=== PATIENT | male | born 1990 | race Caucasian/White ===

== ENCOUNTER 2017-02-26 09:07 | Emergency (ER) | payer MEDICAID ==
[~2017-02-26] VITALS: Ht 190.5 cm; Wt 105.9 kg
[2017-02-26 10:52] LABS: PLATELET COUNT 346 x10^3mcL (130-400); RED CELL DISTRIBUTION WIDTH 13.2 % (11.5-14.5)
[2017-02-26 11:04] LABS: BASOPHIL % 0 % (0-2)
[2017-02-26 11:18] LABS: CARBON DIOXIDE 28.6 mmol/L (21-32); CHLORIDE SERUM 98 mmol/L (98-107); CREATININE SERUM 1.1 mg/dL (0.7-1.3); GFR1 > 60 mL/min; GLUCOSE SERUM 183 mg/dL (74-106); POTASSIUM SERUM 4.1 mmol/L (3.5-5.1); SODIUM SERUM 138 mmol/L (136-145)
[2017-02-26 11:22] LABS: ALBUMIN 4.7 g/dL (3.4-5.0); ALKALINE PHOSPHATASE 65 U/L (46-116); ALT/SGPT 80 U/L (16-63); AST/SGOT 22 U/L (15-37); BILIRUBIN TOTAL 0.65 mg/dL (0.20-1.00); LIPASE 87 IU/L (73-393); MAGNESIUM 2.5 mg/dL (1.8-2.4)
[2017-02-26 11:23] LABS: TOTAL PROTEIN, SERUM 8.7 g/dL (6.4-8.2)
[2017-02-26 13:00] VITALS: BP 134/77
== END 2017-02-26 13:00 | disposition home or self-care (01) ==
LOC: ED 09:07
PROVIDERS: Emergency Medicine
DX: R11.10 Vomiting, unspecified (principal); R53.1 Weakness; R42 Dizziness and giddiness; F12.929 Cannabis use, unspecified with intoxication, unspecified
CPT/HCPCS: J2270; J2405; J3490; J7030

== ENCOUNTER 2017-02-27 11:52 | Inpatient (IN) | payer MEDICAID ==
[~2017-02-27] VITALS: Ht 190.5 cm; Wt 107.3 kg
[2017-02-27 12:38] LABS: BASOPHIL % 0.4 % (0-2); PLATELET COUNT 309 x10^3mcL (130-400); RED CELL DISTRIBUTION WIDTH 12.9 % (11.5-14.5)
[2017-02-27 12:52] LABS: CALCIUM 9.4 mg/dL (8.5-10.1); CARBON DIOXIDE 24.4 mmol/L (21-32); CHLORIDE SERUM 101 mmol/L (98-107); CREATININE SERUM 1.2 mg/dL (0.7-1.3); GFR1 > 60 mL/min; GLUCOSE SERUM 161 mg/dL (74-106); POTASSIUM SERUM 3.6 mmol/L (3.5-5.1); SODIUM SERUM 139 mmol/L (136-145)
[2017-02-27 12:56] LABS: ALBUMIN 4.4 g/dL (3.4-5.0); ALKALINE PHOSPHATASE 63 U/L (46-116); ALT/SGPT 94 U/L (16-63); AST/SGOT 44 U/L (15-37); BILIRUBIN TOTAL 0.8 mg/dL (0.20-1.00); LIPASE 84 IU/L (73-393)
[2017-02-27 12:57] LABS: TOTAL PROTEIN, SERUM 8.3 g/dL (6.4-8.2)
[2017-02-27 14:27] LABS: microscopic required? YES; urine erythrocyte TRACE (NEGATIVE)
[2017-02-27 15:10] LABS: CHOLESTEROL/HDL RATIO 3.2
[2017-02-27 15:16] VITALS: BP 151/90
[2017-02-27 15:17] VITALS: BP 151/90
[2017-02-27 15:20] LABS: FREE T4 1.37 ng/dL (0.76-1.46); FREE THYROXINE INDEX 3.2 ug/dL (1.4-4.5); T4(THYROXINE) 9.6 ug/dL (4.7-13.3)
[2017-02-27 15:22] VITALS: Ht 190.5 cm; Wt 107.3 kg
[2017-02-27 15:32] LABS: T3 TOTAL 1.34 ng/mL
[2017-02-27 18:46] VITALS: BP 132/88
[2017-02-27 22:26] VITALS: BP 124/85
[2017-02-27 23:17] LABS: AMPHETAMINE QUAL UR NONE DETECTED (NEG <=1000)
[2017-02-28 06:06] VITALS: BP 125/94
[2017-02-28 06:33] LABS: BASOPHIL % 0.6 % (0-2); PLATELET COUNT 261 x10^3mcL (130-400); RED CELL DISTRIBUTION WIDTH 12.9 % (11.5-14.5)
[2017-02-28 07:10] LABS: CALCIUM 8.3 mg/dL (8.5-10.1); CARBON DIOXIDE 27.7 mmol/L (21-32); CHLORIDE SERUM 102 mmol/L (98-107); CREATININE SERUM 0.9 mg/dL (0.7-1.3); GFR1 > 60 mL/min; GLUCOSE SERUM 120 mg/dL (74-106); MAGNESIUM 2.2 mg/dL (1.8-2.4); PHOSPHOROUS 3.3 mg/dL (2.5-4.9); POTASSIUM SERUM 3.3 mmol/L (3.5-5.1); SODIUM SERUM 138 mmol/L (136-145)
[2017-02-28 10:29] VITALS: BP 128/79
[2017-02-28 13:12] VITALS: BP 132/78
[2017-02-28] MEDS ORDERED: COL100 PO (14:08)
[2017-02-28] MEDS ORDERED: GOOD SENSE OMEP20 MG PO (14:09)
[2017-02-28] MEDS ORDERED: ZOF4 PO (14:10)
[2017-02-28] MEDS ORDERED: NORCO1 TA2 PO (14:14)
[2017-02-28 14:32] VITALS: BP 132/78
== END 2017-02-28 14:50 | disposition home or self-care (01) | DRG 776 ==
LOC: ED 11:52 → DU 13:51
PROVIDERS: Emergency Medicine; ADMIT Family Medicine
DX: F12.10 Cannabis abuse, uncomplicated (principal); N17.0 Acute kidney failure with tubular necrosis; D68.69 Other thrombophilia; E11.65 Type 2 diabetes mellitus with hyperglycemia; K76.0 Fatty (change of) liver, not elsewhere classified; F17.210 Nicotine dependence, cigarettes, uncomplicated; E78.00 Pure hypercholesterolemia, unspecified; E78.5 Hyperlipidemia, unspecified; K52.9 Noninfective gastroenteritis and colitis, unspecified; E87.6 Hypokalemia; R82.4 Acetonuria; Z89.022 Acquired absence of left finger(s); Z68.29 Body mass index [BMI] 29.0-29.9, adult
CPT/HCPCS: 80307; 83880; 84439; C9113; G0480; J1170; J2270; J2405; J2765; J7030; Q0092

== ENCOUNTER 2017-03-03 12:20 | Emergency (ER) | payer MEDICAID ==
[~2017-03-03] VITALS: Ht 190.5 cm; Wt 103.5 kg
[~2017-03-03 12:20] MED LIST: COL100 PO; GOOD SENSE OMEP20 MG PO; NORCO1 TA2 PO; ZOF4 PO
[2017-03-03 13:34] LABS: PLATELET COUNT 367 x10^3mcL (130-400); RED CELL DISTRIBUTION WIDTH 12.6 % (11.5-14.5)
[2017-03-03 13:47] LABS: BASOPHIL % 0 % (0-2)
[2017-03-03 13:48] LABS: ALBUMIN 4.5 g/dL (3.4-5.0); ALKALINE PHOSPHATASE 60 U/L (46-116); ALT/SGPT 184 U/L (16-63); AMYLASE 34 U/L (25-115); AST/SGOT 55 U/L (15-37); BILIRUBIN TOTAL 0.8 mg/dL (0.20-1.00); CALCIUM 9.8 mg/dL (8.5-10.1); CARBON DIOXIDE 26.3 mmol/L (21-32); CHLORIDE SERUM 101 mmol/L (98-107); CREATININE SERUM 1.1 mg/dL (0.7-1.3); GFR1 > 60 mL/min; GLUCOSE SERUM 160 mg/dL (74-106); LIPASE 76 IU/L (73-393); POTASSIUM SERUM 3.5 mmol/L (3.5-5.1); SODIUM SERUM 138 mmol/L (136-145)
[2017-03-03 13:55] LABS: TOTAL PROTEIN, SERUM 8.7 g/dL (6.4-8.2)
[2017-03-03 15:24] VITALS: BP 144/92
== END 2017-03-03 15:24 | disposition home or self-care (01) ==
LOC: ED 12:20
PROVIDERS: Emergency Medicine
DX: R11.2 Nausea with vomiting, unspecified (principal); F12.929 Cannabis use, unspecified with intoxication, unspecified; R10.13 Epigastric pain
CPT/HCPCS: 83880; J1630; Q0092

== ENCOUNTER 2017-03-07 13:08 | Emergency (ER) | payer MEDICAID ==
[2017-03-07 15:25] LABS: BASOPHIL % 0.5 % (0-2); PLATELET COUNT 353 x10^3mcL (130-400); RED CELL DISTRIBUTION WIDTH 12.7 % (11.5-14.5)
[2017-03-07 15:40] LABS: UA SPECIFIC GRAVITY >=1.030 (1.005-1.035); microscopic required? YES; urine erythrocyte 1+ (NEGATIVE)
[2017-03-07 15:42] LABS: ALBUMIN 4.5 g/dL (3.4-5.0); ALKALINE PHOSPHATASE 51 U/L (46-116); ALT/SGPT 166 U/L (16-63); AMYLASE 45 U/L (25-115); AST/SGOT 43 U/L (15-37); BILIRUBIN TOTAL 0.82 mg/dL (0.20-1.00); CALCIUM 9.3 mg/dL (8.5-10.1); CHLORIDE SERUM 96 mmol/L (98-107); CREATININE SERUM 0.9 mg/dL (0.7-1.3); GFR1 > 60 mL/min; GLUCOSE SERUM 109 mg/dL (74-106); LIPASE 76 IU/L (73-393); SODIUM SERUM 135 mmol/L (136-145); TOTAL PROTEIN, SERUM 8.3 g/dL (6.4-8.2)
[2017-03-07 15:48] LABS: AMPHETAMINE QUAL UR NONE DETECTED (NEG <=1000)
[2017-03-07 19:33] VITALS: BP 144/98
== END 2017-03-07 19:34 | disposition home or self-care (01) ==
LOC: ED 13:08
PROVIDERS: Emergency Medicine
DX: R11.10 Vomiting, unspecified (principal); R10.9 Unspecified abdominal pain; E87.6 Hypokalemia; F17.200 Nicotine dependence, unspecified, uncomplicated
CPT/HCPCS: 80307; 99406; J0500; J1885; J2060; J2405; J3480; J3490; J7030

== ENCOUNTER 2018-09-02 23:43 | Inpatient (IN) | payer MEDICAID ==
[~2018-09-02] VITALS: Ht 190.5 cm; Wt 100.2 kg
[2018-09-02 23:59] VITALS: Ht 190.5 cm; Wt 100.2 kg
[2018-09-03] VITALS (7 sets, daily range): BP systolic 109–143; BP diastolic 48–76
[2018-09-03 00:44] LABS: BASOPHIL % 0.2 % (0-2); PLATELET COUNT 300 x10^3mcL (130-400); RED CELL DISTRIBUTION WIDTH 13.5 % (11.5-14.5)
[2018-09-03 00:48] LABS: CALCIUM 9.2 mg/dL (8.5-10.1); CARBON DIOXIDE 23.9 mmol/L (21-32); CHLORIDE SERUM 100 mmol/L (98-107); CREATININE SERUM 1.1 mg/dL (0.7-1.3); GFR1 > 60 mL/min; GLUCOSE SERUM 153 mg/dL (74-106); POTASSIUM SERUM 3.5 mmol/L (3.5-5.1); SODIUM SERUM 138 mmol/L (136-145)
[2018-09-03 00:52] LABS: ALBUMIN 4.2 g/dL (3.4-5.0); ALKALINE PHOSPHATASE 49 U/L (46-116); ALT/SGPT 70 U/L (16-63); AST/SGOT 26 U/L (15-37); BILIRUBIN TOTAL 0.7 mg/dL (0.20-1.00)
[2018-09-03 00:53] LABS: TOTAL PROTEIN, SERUM 8.4 g/dL (6.4-8.2)
[2018-09-03 01:36] LABS: CHOLESTEROL/HDL RATIO 2.9; MAGNESIUM 2.1 mg/dL (1.8-2.4)
[2018-09-03 01:43] LABS: T3 TOTAL 1.23 ng/mL
[2018-09-03 01:48] LABS: FREE T4 1.29 ng/dL (0.76-1.46); FREE THYROXINE INDEX 3.7 ug/dL (1.4-4.5); T4(THYROXINE) 10.2 ug/dL (4.7-13.3)
[2018-09-03 04:30] LABS: microscopic required? NO
[2018-09-03 05:06] LABS: urine erythrocyte NEGATIVE (NEGATIVE)
[2018-09-03 05:15] LABS: AMPHETAMINE QUAL UR NONE DETECTED (See below)
[2018-09-03 06:24] LABS: BASOPHIL % 0.2 % (0-2); PLATELET COUNT 320 x10^3mcL (130-400); RED CELL DISTRIBUTION WIDTH 12.4 % (11.5-14.5)
[2018-09-03 06:37] LABS: CALCIUM 8.2 mg/dL (8.5-10.1); CARBON DIOXIDE 27.6 mmol/L (21-32); CHLORIDE SERUM 106 mmol/L (98-107); GFR1 > 60 mL/min; GLUCOSE SERUM 122 mg/dL (74-106); POTASSIUM SERUM 4.2 mmol/L (3.5-5.1); SODIUM SERUM 142 mmol/L (136-145)
[2018-09-04 05:39] VITALS: BP 116/60
[2018-09-04 06:49] LABS: BASOPHIL % 0.5 % (0-2); PLATELET COUNT 263 x10^3mcL (130-400)
[2018-09-04 07:14] LABS: CALCIUM 8.7 mg/dL (8.5-10.1); CARBON DIOXIDE 29.9 mmol/L (21-32); CHLORIDE SERUM 104 mmol/L (98-107); CREATININE SERUM 1.1 mg/dL (0.7-1.3); GFR1 > 60 mL/min; GLUCOSE SERUM 93 mg/dL (74-106); MAGNESIUM 2.4 mg/dL (1.8-2.4); PHOSPHOROUS 4.6 mg/dL (2.5-4.9); SODIUM SERUM 141 mmol/L (136-145)
[2018-09-04 10:17] VITALS: BP 113/68
[2018-09-04] MEDS ORDERED: PROTONIX TR40 M1 PO (14:01)
[2018-09-04 14:12] VITALS: BP 113/68
[2018-09-04 14:18] VITALS: BP 120/72
== END 2018-09-04 14:40 | disposition home or self-care (01) | DRG 242 ==
LOC: ED 23:43 → DU 09-03 01:08
PROVIDERS: Emergency Medicine; Internal Medicine; Internal Medicine Gastroenterology
PROC: 0DB68ZX Excision of Stomach, Via Natural or Artificial Opening Endoscopic, Diagnostic (ICD-10-PCS; principal; 2018-09-03 11:30)
DX: K22.6 Gastro-esophageal laceration-hemorrhage syndrome (principal); K76.0 Fatty (change of) liver, not elsewhere classified; E78.5 Hyperlipidemia, unspecified; K52.9 Noninfective gastroenteritis and colitis, unspecified; R82.4 Acetonuria; F12.10 Cannabis abuse, uncomplicated; Z68.27 Body mass index [BMI] 27.0-27.9, adult; Z89.022 Acquired absence of left finger(s)
CPT/HCPCS: 43235; 83880; 84439; C9113; G0480; J1200; J1610; J2250; J2270; J2310; J2405; J2765; J3010; J3490; J7030; Q0163

== ENCOUNTER 2019-05-11 10:00 | Inpatient (IN) | payer MEDICAID ==
[~2019-05-11] VITALS: Ht 190.5 cm; Wt 93.0 kg
[~2019-05-11 10:00] MED LIST changes: +PROTONIX TR40 M1 PO
[2019-05-11 10:18] VITALS: Ht 190.5 cm; Wt 93.0 kg
--- NOTE | 2019-05-11 10:59 | NUR ---
PT BIB SELF C/C ABD PAIN WITH N/V X [address] PALMER AT BEDSIDE TO EVAL
[2019-05-11 11:41] LABS: CALCIUM 10.1 mg/dL (8.5-10.1); CHLORIDE SERUM 95 mmol/L (98-107); CREATININE SERUM 1.2 mg/dL (0.7-1.3); GFR1 > 60 mL/min; GLUCOSE SERUM 159 mg/dL (74-106); POTASSIUM SERUM 3.6 mmol/L (3.5-5.1); SODIUM SERUM 138 mmol/L (136-145)
[2019-05-11 11:45] LABS: BASOPHIL % 0.2 % (0-2); PLATELET COUNT 320 x10^3mcL (130-400); RED CELL DISTRIBUTION WIDTH 13.1 % (11.5-14.5)
[2019-05-11 11:46] LABS: ALBUMIN 4.6 g/dL (3.4-5.0); ALKALINE PHOSPHATASE 48 U/L (46-116); ALT/SGPT 62 U/L (16-63); AST/SGOT 26 U/L (15-37); BILIRUBIN TOTAL 1.3 mg/dL (0.20-1.00); LIPASE 78 IU/L (73-393)
[2019-05-11 11:50] LABS: TOTAL PROTEIN, SERUM 8.8 g/dL (6.4-8.2)
--- NOTE | 2019-05-11 12:20 | NUR ---
MEDICATED FOR PAIN
--- NOTE | 2019-05-11 13:25 | NUR ---
PT ADMIT TO MS GAVE REPORT ASIA
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
--- NOTE | 2019-05-11 13:36 | NUR ---
PLEASE ENTER FULL NAMES OF ASSISTANT NURSE MANAGER/RN Patient data collected by (ASSISTANT NURSE MANAGER): RENÉ SMITH Assessment reviewed and completed by (RN): TIESHA JENNINGS
[2019-05-11 13:56] VITALS: BP 145/85
[2019-05-11 14:25] LABS: CHOLESTEROL/HDL RATIO 3.2; MAGNESIUM 2.2 mg/dL (1.8-2.4); PHOSPHOROUS 1.8 mg/dL (2.5-4.9)
--- NOTE | 2019-05-11 15:10 | NUR ---
PATIENT C/O ABD PAIN AT THIS TIME. INFORMED PATIENT NOT TIME TO ADMINISTER MORPHINE, BUT NORCO IS AVAILABLE. PATIENT OK WITH NORCO. MEDICATED WITH NORCO PRN AT THIS TIME. NO ADVERSE EFFECTS NOTED. ALL NEEDS ATTENDED TO. WILL CONTINUE TO MONITOR
--- NOTE | 2019-05-11 16:30 | NUR ---
PATIENT C/O X1 EMESIS AT THIS TIME. PATIENT MEDICATED WITH ZOFRAN PRN AT THIS TIME. PATIENT TOLERATED WELL. NO APPARENT DISTRESS NOTED. NO ADVERSE EFFECTS NOTED. ALL NEEDS ATTENDED TO. WILL CONTINUE TO MONITOR
--- NOTE | 2019-05-11 17:50 | NUR ---
PATIENT C/O ABD PAIN AT THIS TIME. PATIENT MEDICATED WITH MORPHINE PRN. PATIENT TOLERATED WELL. NO ADVERSE EFFECTS NOTED. ALL NEEDS ATTENDED TO. WILL CONTINUE TO MONITOR
[2019-05-11 17:57] VITALS: BP 122/54
--- NOTE | 2019-05-11 19:05 | NUR ---
PATIENT RESTING COMFORTABLY IN BED. NO APPARENT DISTRESS OR DISCOMFORT NOTED. IV PATENT AND INTACT. ALL QUESTIONS AND CONCERNS ADDRESSED. SAFETY PRECAUTIONS MAINTAINED. ALL NEEDS ATTENDED TO. WILL ENDORSE ALL CARE TO COOK RELIEF NURSE
--- NOTE | 2019-05-11 19:30 | NUR ---
RECEIVED REPORT FROM DAY SHIFT RN. PT RESTING IN BED, WATCHING TV. NO SOB ON ROOM AIR. NO DISTRESS NOTED. NO C/O N/V/PAIN AT THIS TIME. IV TO LAC, NS INFUSING. SAFETY MEASURES IN PLACE. BED IN LOWEST POSITION. SIDE RAILS UP X2. INSTRUCTED PT TO USE THE CALL LIGHT IF ASSISTANCE IS NEEDED. CALL LIGHT WITHIN REACH.
[2019-05-11 20:52] VITALS: BP 114/46
--- NOTE | 2019-05-11 21:10 | NUR ---
ZOFRAN GIVEN FOR NAUSEA.
[2019-05-11 21:32] LABS: UA SPECIFIC GRAVITY 1.025 (1.005-1.035); microscopic required? YES; urine erythrocyte NEGATIVE (NEGATIVE)
[2019-05-11 21:41] LABS: AMPHETAMINE QUAL UR NONE DETECTED (See below)
--- NOTE | 2019-05-11 23:50 | NUR ---
PT C/O SHOOTING PAIN TO ABD /. MEDICATED WITH NORCO.
--- NOTE | 2019-05-12 02:05 | NUR ---
PT RESTING WITH EYES CLOSED. NO SOB ON ROOM AIR. NO DISTRESS NOTED. CALL LIGHT WITHIN REACH. WILL CONTINUE TO MONITOR.
--- NOTE | 2019-05-12 05:08 | NUR ---
PT C/O NAUSEA. MEDICATED WITH ZOFRAN.
[2019-05-12 05:52] VITALS: BP 118/68
[2019-05-12 06:10] LABS: BASOPHIL % 0.4 % (0-2); PLATELET COUNT 261 x10^3mcL (130-400)
--- NOTE | 2019-05-12 06:21 | NUR ---
PT RESTED AT LONG INTERVALS DURING SHIFT. ON AND OFF NAUSEA AND ABD PAIN. MEDICATED PER ORDER. SAFETY MEASURES MAINTAINED. ALL NEEDS ATTENDED TO. NPO FOR EGD TODAY. CONSENT SIGNED. CHECKLIST STARTED. WILL ENDORSE CONTINUITY OF CARE TO DAY SHIFT RN.
[2019-05-12 06:37] LABS: CALCIUM 9.5 mg/dL (8.5-10.1); CHLORIDE SERUM 102 mmol/L (98-107); GFR1 > 60 mL/min; GLUCOSE SERUM 93 mg/dL (74-106); MAGNESIUM 2.9 mg/dL (1.8-2.4); PHOSPHOROUS 3.8 mg/dL (2.5-4.9); POTASSIUM SERUM 3.5 mmol/L (3.5-5.1); SODIUM SERUM 138 mmol/L (136-145)
--- NOTE | 2019-05-12 07:25 | NUR ---
RECEIVED PT FROM MANAGER COSMETICS. PT AWAKE, ALERT. A/OX4. PT ON ROOM AIR WITH NO RESP DISTRESS NOTED. LUNGS CTA. PERIPHERAL PULSES PALPABLE, NO EDEMA NOTED. IV ACCESS LAC C/D/I INFUSING NS AT 100ML/HR. ACTIVE BOWEL SOUNDS NOTED. PT COMPLAINS OF ABDOMINAL PAIN 5/10 INTERMITTANT AND BURNING. DENIES NAUSEA OR VOMITING AT THIS TIME. PT REPORTS LAST BM ON 05/04/19, PT STATES HE HAS NOT BEEN EATING DUE TO NAUSEA. PT VOIDS FREELY. PT AMBULATORY, SAFETY MEASURES IN PLACE, BED LOW AND LOCKED, CALL LIGHT WITHIN REACH. PT TO HAVE EGD TODAY.
[2019-05-12 07:50] VITALS: BP 112/62
--- NOTE | 2019-05-12 08:43 | NUR ---
PT REPORTS INTERMITTANT PAIN IN ABDOMEN 5/10. PT ASKING FOR PAIN MED, NORCO ADMINISTERED ORDERED PRN (SEE EMAR). WILL CONTINUE TO MONITOR.
--- NOTE | 2019-05-12 09:46 | NUR ---
PT RESTING WITH NO ACUTE DISTRESS OR DISCOMFORT NOTED AT THIS TIME.
[2019-05-12 10:34] VITALS: BP 119/73
--- NOTE | 2019-05-12 10:40 | NUR ---
PT OFF THE FLOOR AT THIS TIME FOR PROCEDURE.
--- NOTE | 2019-05-12 12:01 | NUR ---
PT IN PROCEDURE AT THIS TIME. WILL GIVE MEDS WHEN PT RETURNS.
[2019-05-12 12:54] VITALS: BP 133/95
--- NOTE | 2019-05-12 13:03 | NUR ---
PT BACK ON THE FLOOR AFTER EGD. PT AWAKE, ALERT. PT DENIES PAIN AT THIS TIME. DUE MEDS ADMINISTERED ORDERED (SEE EMAR). IV FLUIDS DISCONTINUED. PT PUT ON FULL LIQUID DIET AT THIS TIME. VITAL SIGNS STABLE. NO DISTRESS NOTED. SAFETY MAINTAINED.
--- NOTE | 2019-05-12 15:42 | NUR ---
PT RESTING WITH NO ACUTE DISTRESS NOTED. FAMILY AT BEDSIDE. SAFETY MAINTAINED.
[2019-05-12 16:01] VITALS: BP 119/65
--- NOTE | 2019-05-12 17:16 | NUR ---
DUE MEDS ADMINISTERED. PT REPORTS HAVING BOWEL MOVEMENT FOR THE FIRST TIME SINCE 05/04/19. PT REPORTS FORMED STOOL AND NO ABDOMINAL PAIN SINCE BM. PT RESTING COMFORTABLY AT THIS TIME. SAFETY MAINTAINED.
--- NOTE | 2019-05-12 18:29 | NUR ---
PT STABLE AT THIS TIME. ALL NEEDS TENDED TO THROUGHOUT SHIFT. WILL CONTINUE TO MONITOR AND ENDORSE CARE TO CASE ASSISTANT. SAFETY MAINTAINED.
--- NOTE | 2019-05-12 19:20 | NUR ---
RECEIVED PT FROM PREVIOUS SHIFT NURSE. PT AOX4. MED SURG PT. DENIES PEREZ/DIZZINESS. DENIES SOB/DIFFICULTY BREATHING, ON RA. IV TO LAC, INTACT AND PATENT. BED IN LOWEST POSITION. CALL LIGHT WITHIN REACH. WILL CONTINUE TO MONITOR.
--- NOTE | 2019-05-12 20:29 | NUR ---
PT C/O ABD PAIN 6/10 AND NAUSEA. MEDICATED PER EMAR.
[2019-05-12 20:53] VITALS: BP 136/85
--- NOTE | 2019-05-12 21:49 | NUR ---
PT CONTINUED TO C/O 08/10 ABD PAIN, DR. BYNUM NOTIFIED. DR. BYNUM ORDERED TORADOL 15MG IVP. MEDICATED PER EMAR.
--- NOTE | 2019-05-12 22:35 | NUR ---
PT C/O CONTINUED ABD PAIN 08/10. DR. FERMIN NOTIFIED. PER SHE WILL GO SEE PT.
--- NOTE | 2019-05-13 00:49 | NUR ---
PT RESTING IN BED. RR EVEN AND UNLABORED. IN NO ACUTE DISTRESS. CALL LIGHT WITHIN REACH. BED IN LOWEST POSITION. WILL CONTINUE TO MONITOR.
[2019-05-13 05:45] VITALS: BP 92/51
--- NOTE | 2019-05-13 05:48 | NUR ---
PER PT, HE HAD A BM THIS AM AND HAD RELIEF FROM THE ABD PAIN HE WAS FEELING.
[2019-05-13 06:39] LABS: BASOPHIL % 0.2 % (0-2); PLATELET COUNT 299 x10^3mcL (130-400); RED CELL DISTRIBUTION WIDTH 12.9 % (11.5-14.5)
[2019-05-13 06:51] LABS: CALCIUM 10.1 mg/dL (8.5-10.1); CARBON DIOXIDE 28.1 mmol/L (21-32); CHLORIDE SERUM 101 mmol/L (98-107); GFR1 > 60 mL/min; GLUCOSE SERUM 110 mg/dL (74-106); MAGNESIUM 2.6 mg/dL (1.8-2.4); PHOSPHOROUS 4.7 mg/dL (2.5-4.9); POTASSIUM SERUM 4.6 mmol/L (3.5-5.1); SODIUM SERUM 140 mmol/L (136-145)
--- NOTE | 2019-05-13 07:28 | NUR ---
RECEIVED HAND OFF REPORT FROM WARNER KHALIL. FOUND PATIENT LEFT SIDE LYING EYES CLOSED, BREATHING STEADY APPARENTLY ASLEEP. CALL LIGHT ON BED WITHIN REACH OF PATIENT. WILL CONTINUE TO MONITOR
[2019-05-13 08:42] VITALS: BP 144/112
--- NOTE | 2019-05-13 08:50 | NUR ---
PATIENT USED CALL LIGHT COMPLAINING OF NAUSEA AND ABD PAIN AND REQUESTING WASHCLOTH FOR WARM WATER ON ABD, PATIENT BLOOD PRESSURE ELEVATED PATIENT IN PAIN AND MOVING A TIME OF VITAL SIGNS TAKEN. ADMINISTERED ZOFRAN AND NORCO FOR PAIN AND NAUSEA, WHILE GETTING PATIENT WATER, PATIENT ENTERED SHOWER. UNABLE TO GIVE REMAINDER OF MEDICATIONS AT THIS TIME DUE TO PATIENT IN SHOWER. ENCOURAGED PATIENT TO TRY AND HAVE BOWEL MOVEMENT. WILL CONTINUE TO MONITOR
[2019-05-13] MEDS ORDERED: ANASPAZ0.125 MG PO (09:04)
--- NOTE | 2019-05-13 09:32 | NUR ---
ADMINISTERED MEDICATIONS PER MAR. PATIENT STATED HIS PAIN HAS GONE DOWN SLIGHTLY BUT WISHES TO REST FOR A WHILE TO CONTINUE TO CONTROLL IT. DISCHARGE ORDERS ARE STARTED AND PATIENT SAID HE WOULD HAVE TRANSPORT AFTER 12. CALL LIGHT WITHIN REACH
[2019-05-13 11:08] VITALS: BP 117/68; BP 144/112
[2019-05-13 12:20] VITALS: BP 117/68
--- NOTE | 2019-05-13 12:27 | NUR ---
ADMINISTERED MEDCATIONS PER MAR, PATIENT REFUSED LAXATIVE, PATIENT REQUESTING DISCHARGE AND PAPERWORK IS BEING REPARED.
--- NOTE | 2019-05-13 13:23 | NUR ---
PATIENT PREPARED FOR DISCHARGE, ORDER PRESENT. PATIENT GIVEN COPY OF PRESCRIPTIONS, PHOTOS AND PAPERWORK. REVIED CHART WITH PATIENT AND DISCHARGE INSTRUCTION. ANSWERED QUESTIONS THAT AROSE, INFORMED OF FOLLOWUP APPOINTMENT PATIENT RECEPTIVE OF TEACHING. NO ADDITIONAL QUESTIONS. IV FROM LEFT AC REMOVED, CATH INTACT. MALACHI HERNANDEZ ESCORTED PATIENT OFF UNIT WITH ALL BELONGINGS
== END 2019-05-13 13:24 | disposition home or self-care (01) | DRG 812 ==
LOC: ED 10:00 → MU 13:03
PROVIDERS: Emergency Medicine; Internal Medicine Gastroenterology; ADMIT Internal Medicine
PROC: 0DB78ZX Excision of Stomach, Pylorus, Via Natural or Artificial Opening Endoscopic, Diagnostic (ICD-10-PCS; principal; 2019-05-12 12:00)
DX: T40.7X1A Poisoning by cannabis (derivatives), accidental (unintentional), initial encounter (principal); N17.0 Acute kidney failure with tubular necrosis; E83.39 Other disorders of phosphorus metabolism; R11.2 Nausea with vomiting, unspecified; R10.12 Left upper quadrant pain; F12.188 Cannabis abuse with other cannabis-induced disorder; R74.0 Nonspecific elevation of levels of transaminase and lactic acid dehydrogenase [LDH]; E78.5 Hyperlipidemia, unspecified; F17.210 Nicotine dependence, cigarettes, uncomplicated; Z68.25 Body mass index [BMI] 25.0-25.9, adult; Y92.009 Unspecified place in unspecified non-institutional (private) residence as the place of occurrence of the external cause
CPT/HCPCS: 43235; C9113; G0378; J1200; J1610; J1885; J2250; J2270; J2310; J2405; J2765; J3010; J3490; J7030; Q0092

== ENCOUNTER 2019-05-16 12:15 | Emergency (ER) | payer MEDICAID ==
[~2019-05-16] VITALS: Ht 190.5 cm; Wt 89.8 kg
[~2019-05-16 12:15] MED LIST changes: +ANASPAZ0.125 MG PO
[2019-05-16 12:20] VITALS: Ht 190.5 cm; Wt 89.8 kg
[2019-05-16 13:58] LABS: BASOPHIL % 0.2 % (0-2); PLATELET COUNT 324 x10^3mcL (130-400)
[2019-05-16 14:28] LABS: ALBUMIN 4.6 g/dL (3.4-5.0); ALKALINE PHOSPHATASE 47 U/L (46-116); ALT/SGPT 77 U/L (16-63); AST/SGOT 20 U/L (15-37); BILIRUBIN TOTAL 1.4 mg/dL (0.20-1.00); CALCIUM 10.3 mg/dL (8.5-10.1); CHLORIDE SERUM 91 mmol/L (98-107); CREATININE SERUM 1.2 mg/dL (0.7-1.3); GFR1 > 60 mL/min; GLUCOSE SERUM 144 mg/dL (74-106); LIPASE 74 IU/L (73-393); SODIUM SERUM 133 mmol/L (136-145)
[2019-05-16 14:34] LABS: POTASSIUM SERUM 2.9 mmol/L (3.5-5.1)
[2019-05-16 15:43] LABS: UA SPECIFIC GRAVITY 1.015 (1.005-1.035); microscopic required? YES; urine erythrocyte TRACE (NEGATIVE)
[2019-05-16 15:52] LABS: AMPHETAMINE QUAL UR NONE DETECTED (See below)
[2019-05-16 20:35] VITALS: BP 114/70
== END 2019-05-16 20:35 | disposition home or self-care (01) ==
LOC: ED 12:15
PROVIDERS: Emergency Medicine
DX: K29.61 Other gastritis with bleeding (principal); F12.188 Cannabis abuse with other cannabis-induced disorder; E87.6 Hypokalemia; F17.200 Nicotine dependence, unspecified, uncomplicated; Z88.8 Allergy status to other drugs, medicaments and biological substances
CPT/HCPCS: 99406; J1630; J2060; J2405; J3480; J3490; J7030